=== PATIENT | female | born 2000 | race African-American/Black ===

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

== ENCOUNTER 2019-04-16 10:51 | Inpatient (IN) | payer BC ==
[2019-04-16 11:26] LABS: Bacteria/HPF 4+ HPF (None Seen); Bilirubin Negative (Negative); Blood, Urine 2+ (Negative); Clarity Turbid (Clear); Glucose, Urine (Dipstick) Normal (Negative); Leukocyte 500 Leu/uL (Negative); Nitrite 2+ (Negative); Protein, Urine (Dipstick) 10 mg/dL (Neg-Trace); Urobilinogen Normal mg/dL (Less than 2); WBC/HPF Greater than 50 HPF (0-3)
[2019-04-16] MEDS ORDERED: Sodium Chloride 0.9% 1,000 ML IV SCH (13:53)
[2019-04-16] MEDS ORDERED: Sodium Chloride 0.9% 500 ML IV SCH (16:15)
[2019-04-16] MEDS: Sodium Chloride 0.9% 1,000 ML IV SCH (16:45)
[2019-04-16] MEDS ORDERED: cefTRIAXone\\ROCEPHIN 2 GM in Sodium Chloride 0.9% 100 ML IVPB SCH (18:00)
--- NOTE | 2019-04-16 18:24 | PDOC.HHP ---
Hospitalist HPI - History of Present Illness headache, fever, chills History of Present Illness: Patient was in her usual state of health until this am when she started having the above symptoms...she went to [facility], was evaluated, felt to be septic and transfered to this facility. Uppon arrival her systolic BP was in the low 70 's She denies any significant past medical history or surgical history. Does not have any know allergy. Denies cigarette smoking, ETOH abuse or substance abuse. Family history was reviewed and is not contributory. Hospitalist ROS - Review of Systems Constitutional: reports: fever, chills Eyes: denies: pain, vision change, conjunctivae inflammation, eyelid inflammation, redness, other ENT: denies: ear pain, ear discharge, nose pain, nose discharge, nose congestion , mouth pain, mouth swelling, throat pain, throat swelling, other Respiratory: denies: cough, dry, shortness of breath, hemoptysis, SOB with excertion, pleuritic pain, sputum, wheezing, other Cardiovascular: denies: chest pain, palpitations, orthopnea, paroxysmal noc. dyspnea, edema, light headedness, other Gastrointestinal: denies: nausea, vomiting, abdominal pain, diarrhea, constipation, melena, hematochezia, other Genitourinary: denies: dysuria, frequency, incontinence, hematuria, retention, other Musculoskeletal: denies: neck pain, shoulder pain, arm pain, back pain, hand pain, leg pain, foot pain, other Skin: denies: rash, lesions, natasha, bruising, other Neurological: reports: weakness (left arm and right leg..) Hospitalist History - Past Medical History Source: patient Cardiac: denies: no pertinent history, AFIB, CAD, CHF, HTN, MT, Syncope, Hyperlipidemia, Mitral valve stenosis, Aortic stenosis, Valve insufficiency, Pulmonary hypertension, Other Pulmonary: denies: no pertinent history, angina, asthma, bronchitis, CVA/TIA/ stroke, congestive heart failure, COPD, deep vein thrombosis, emphysema, heart attack, high cholesterol, HIV/AIDS, hypertension, lung disease, pneumonia, previously intubated, pulmonary embolism, Other COORDINATOR OF ONLINE PROGRAMS: denies: no pertinent history, Carpal Tunnel Syndrome, CVA, Dementia, Migraine, Peripheral neuropathy, Seizure, TIA, Vertigo, Other Gastrointestinal: denies: no pertinent history, Constipation, Diverticulosis, GERD, GI bleed, Gastritis, Hemorrhoids, Inflam bowel disease, Irritable bowel disease, Peptic ulcer disease, Other Heme/Onc: denies: no pertinent history, Anemia NOS, B12 deficiency, Cancer, Hemochromatosis, Iron deficiency anemia, Sickle cell disease, Sickle cell trait , Other Hepatobiliary: denies: no pertinent history, Cirrhosis, Cholelithiasis, Hep A/B/ C, Other Psych: denies: no pertinent history, Anxiety, Addictions, Bipolar, Depression, Panic, Psychosis, Schizophrenia, Other Musculoskeletal: denies: no pertinent history, Chronic low back pain, Bursitis, Osteoarthritis, Other Rheumatologic: denies: no pertinent history, Fibromyalgia, Gout, Rheumatoid arthritis, Vasculitis, Other Endocrine: reports: Other (Currently menstruating..Had a miscarriage in November 2018.) - Exam General Appearance: ill appearing Eye: PERRL, anicteric sclera ENT: normocephalic atraumatic, no oropharyngeal lesions, moist mucosa Neck: supple, no JVD, no thyromegaly, no lymphadenopathy, no carotid bruit Heart: RRR Respiratory: CTAB Gastrointestinal: soft, non-tender, non-distended, normal bowel sounds, no palpable masses, no hepatomegaly, no splenomegaly, no guarding, no rigidity, tender to palpation Extremities: no cyanosis, no clubbing, no edema Skin: normal turgor Neurological: cranial nerve grossly intact Neurological - other findings: Weakness of right leg and left arm Psychiatric: A&O x 3 Hospitalist Results - Labs Lab results: Urine Ketones Negative mg/dL (Negative) 04/16/19 11:09 Urine Blood 2+ (Negative) A 04/16/19 11:09 Urine Nitrite 2+ (Negative) A 04/16/19 11:09 Ur Leukocyte Esterase 500 Bridget/uL (Negative) A 04/16/19 11:09 Urine RBC 4-6 HPF (0-3) A 04/16/19 11:09 Urine WBC Greater than 50 HPF (0-3) A 04/16/19 11:09 Ur Squamous Epith Cells 4-6 HPF (0-3) A 04/16/19 11:09 Urine Bacteria 4+ HPF (None Seen) A 04/16/19 11:09 Hospitalist H&P A/P - Problem (1) Left arm weakness Code(s): R29.898 - OT SYMPTOMS AND SIGNS INVOLVING THE MUSCULOSKELETAL SYSTEM Status: Acute (2) Right leg weakness Code(s): R29.898 - OTH SYMPTOMS AND SIGNS INVOLVING THE MUSCULOSKELETAL SYSTEM Status: Acute (3) Sepsis Code(s): A41.9 - SEPSIS, UNSPECIFIED ORGANISM Status: Acute Assessment and Plan: Check blood and urine culture. Chest x-ray. Start braod spectrum antibiotics Head CT with and without contrast. Consult ID, Neurology. Head CT with and without contrast.. NS wide open, then @ 125 cc/hour
[2019-04-16 18:30] LABS: #Lymphocytes 0.6 thou/uL (1.20-3.40); #Monocytes 0.2 thou/uL (0.11-0.59); #Neutrophils 12.7 thou/uL (1.40-6.50); %Basophils 0.3 % (0.0-1.0); %Eosinophils 0.2 % (0.0-10.0); %Lymphocytes 4.7 % (28.0-48.0); %Monocytes 1.2 % (0.0-4.0); %Neutrophils 93.7 % (31.0-61.0); Hemoglobin 10.2 g/dL (12.0-16.0); Mean Corpuscular HGB CONC 32.8 g/dL (32.0-36.0); Mean Corpuscular Hemoglobin 28.6 pg (25.0-35.0); Mean Corpuscular Volume 87.1 fL (78.0-98.0); Mean Platelet Volume 7.9 fL (7.4-10.4); Platelet Count 231 thou/uL (130-400); RBC Distribution Width 12.8 % (11.5-14.5); Red Blood Cell (RBC) Count 3.56 mill/uL (4.00-5.20); White Blood Cell (WBC) Count 13.6 thou/uL (4.8-10.8)
[2019-04-16 18:38] LABS: BHCG - Serum Negative (NEGATIVE); Pregs Control Background? CLEAR/WHITE (CLR/WHITE); Pregs Control Bar Appear? YES (CONTROL BAR)
[2019-04-16 18:47] VITALS: BMI 31.6
[2019-04-16 18:54] LABS: Anion Gap 12 mmol/L (10-20); BUN (Urea Nitrogen) 9 mg/dL (7.0-18.7); Calc. Creatinine Clearance 116 mL/min (70-130); Calcium 7.9 mg/dL (7.8-10.44); Carbon Dioxide 23 mmol/L (22-29); Chloride 110 mmol/L (98-107); Estimated GFR-MDRD 75; Glucose 105 mg/dL (70-105); Magnesium 1.5 mg/dL (1.7-2.2); Potassium 3.7 mmol/L (3.5-5.1); Sodium 141 mmol/L (136-145)
--- NOTE | 2019-04-16 20:20 | MRI ---
MRI BRAIN WITH AND WITHOUT CONTRAST: DATE: 04/16/2019 HISTORY: 19-year-old female with fever, right lower extremity weakness, and left upper extremity weakness. "Se psis." TECHNIQUE: Multiplanar, multisequence MRI of the brain obtained pre and post IV injection of gadolinium based co ntrast agent. FINDINGS: The ventricles are normal in size and configuration. There is no midline shift or any other evidence of mass effect. There is no extra-axial fluid collection. There is no intra-axial signal abnormality, abnormal enhancement, mass, recent hemorrhage, or restricted diffusion. IMPRESSION: Normal
[2019-04-16] MEDS: Vancomycin HCl 1 GM in Premix Bag 1 BAG IVPB SCH (21:08)
--- NOTE | 2019-04-16 23:51 | PDOC.EVN ---
Event Note - Event Note Event Note: OBGYN consult on record. Consult was cancelled by phone to the OBGYN hospitalist team. We are happy to assist in any way. Thanks
[2019-04-17 02:58] LABS: Lactic Acid 2.1 mmol/L (0.5-2.2)
[2019-04-17] MEDS: Sodium Chloride 0.9% 1,000 ML IV SCH ×3 (04:00→19:56)
[2019-04-17] MEDS ORDERED: Sodium Chloride 0.9% 500 ML IV SCH (04:15)
[2019-04-17] MEDS: Vancomycin HCl 1 GM in Premix Bag 1 BAG IVPB SCH ×2 (08:29→21:01)
[2019-04-17] MEDS: Acetaminophen 325 MG TAB PO PRN ×2 (08:41→18:00)
[2019-04-17] MEDS ORDERED: cefTRIAXone\\ROCEPHIN 2 GM in Sodium Chloride 0.9% 100 ML IVPB SCH (09:00)
[2019-04-17] MEDS ORDERED: Ondansetron PF 4 MG/2 ML Vial IVP PRN (11:22)
--- NOTE | 2019-04-17 11:30 | CON ---
DATE OF CONSULTATION: CHIEF COMPLAINT: Numbness. HISTORY OF PRESENT ILLNESS: The patient reports she woke up around 5:00 a.m. yesterday. She felt cold. She could not stop shaking. She came to the emergency room and she was told that she had urinary tract infection. She felt numbness in both hands and her left foot and per admitting physician's note, she also had left arm and right leg weakness. She complained of mouth tingling and dizziness. PREVIOUS MEDICAL HISTORY: No history of any health issues. No sickle cell trait or sickle cell anemia. PREVIOUS SURGICAL HISTORY: None. FAMILY HISTORY: Mother is 60, dad is 58, both are healthy. There is no family history of any strokes or sickle cell disease or thalassemia. SOCIAL HISTORY: She does not smoke or drink. She lives with her family. REVIEW OF SYSTEMS: PULMONARY: Negative for shortness of breath or cough. GI: Negative for any nausea, vomiting, or diarrhea. GENITOURINARY: Positive for urinary infection. DERMATOLOGIC: Negative for any rash or skin problems. OPHTHALMOLOGIC: Negative for any blurred vision. ENDOCRINE: Normal. ENT: Negative for any hearing problems. NEUROLOGIC: Positive for numbness. LABORATORY DATA: Her current lab workup, laboratory results; white count 13.6, hemoglobin 10.2, hematocrit 31, platelet count 231. Chemistry; sodium 141, potassium 3.7, chloride 110, bicarb 23, BUN 9, creatinine 1.12, magnesium 1.5. Her MRI of the brain was completed and did not show any acute stroke or demyelinating lesions. PHYSICAL EXAMINATION: VITAL SIGNS: Blood pressure 92/64, pulse is 86, temperature 98.4, respiratory rate 18. GENERAL APPEARANCE: Well-built, well-nourished lady, who is comfortable and standing in the room and walking around. CHEST: Clear vesicular breathing. CARDIOVASCULAR: S1 and S2 heard. No murmurs. ABDOMEN: Soft and nontender. No organomegaly noted. NEUROLOGICAL: Higher intellectual function. Normal orientation to time, place, and person. Appropriate conversation. Cranial nerves 2 through 12, normal extraocular movements. Pupils are 2 mm bilaterally. No facial asymmetry noted. Tongue midline. No atrophy noted. Normal sensation of face bilaterally. Normal hearing bilaterally to finger rub. Motor examination; bulk normal, tone normal. Strength 5/5 in upper and lower extremities bilaterally in iliopsoas, hamstrings, quadriceps, ankle dorsiflexion, plantar flexion, deltoid, biceps, triceps, wrist extension and flexion, finger extension and flexion bilaterally. Sensory examination normal to touch bilaterally in upper and lower extremities. Cerebellar; normal [id number] and [id number]. IMPRESSION: The patient is a 19-year-old lady who comes in with history of urinary infection and she had some nonspecific neurological symptoms such as numbness and weakness. Her current neurological examination is normal. There is no history of any stroke in the family. Her MRI is negative. At this time, I do not think she has any active neurological issues. Please call us if you have any further questions. Job ID: [id number]
[2019-04-17] MEDS ORDERED: Meropenem 1 GM in Sodium Chloride 0.9% 100 ML IVPB SCH (12:00)
[2019-04-17] MEDS: MEROPENEM 1 GM/50 ML 1 GM in Premix Bag 1 BAG IVPB SCH ×2 (12:59→19:56)
[2019-04-17 13:02] LABS: #Lymphocytes 1.3 thou/uL (1.20-3.40); #Monocytes 0.4 thou/uL (0.11-0.59); #Neutrophils 10.1 thou/uL (1.40-6.50); %Basophils 0.1 % (0.0-1.0); %Eosinophils 0.3 % (0.0-10.0); %Lymphocytes 10.8 % (28.0-48.0); %Neutrophils 85.8 % (31.0-61.0); Hemoglobin 9.8 g/dL (12.0-16.0); Mean Corpuscular HGB CONC 33.3 g/dL (32.0-36.0); Mean Corpuscular Hemoglobin 28.9 pg (25.0-35.0); Mean Corpuscular Volume 86.9 fL (78.0-98.0); Mean Platelet Volume 8.2 fL (7.4-10.4); Platelet Count 230 thou/uL (130-400); RBC Distribution Width 12.8 % (11.5-14.5); Red Blood Cell (RBC) Count 3.38 mill/uL (4.00-5.20); White Blood Cell (WBC) Count 11.8 thou/uL (4.8-10.8)
[2019-04-17 13:12] LABS: Anion Gap 10 mmol/L (10-20); BUN (Urea Nitrogen) 7 mg/dL (7.0-18.7); Calc. Creatinine Clearance 130 mL/min (70-130); Carbon Dioxide 23 mmol/L (22-29); Chloride 111 mmol/L (98-107); Estimated GFR-MDRD 86; Potassium 3.5 mmol/L (3.5-5.1); Sodium 140 mmol/L (136-145)
[2019-04-17 13:13] LABS: Calcium 8.3 mg/dL (7.8-10.44); Glucose 90 mg/dL (70-105)
[2019-04-17 18:30] LABS: Syphilis Antibody Nonreactive (Nonreactive); Syphilis Antibody Index 0.06 S/CO (<1.00 Non-Reactive)
[2019-04-17 18:36] LABS: HIV (1/2) Antibody/Antigen Non-Reactive (NonReactive); HIV 1/2 INDEX 0.05 S/CO (<1.00)
--- NOTE | 2019-04-17 19:08 | PDOC.HOSPP ---
- Subjective Encounter Date: 04/17/19 Encounter Time: 10:00 Subjective: Pt seen for followup re:sepsis. feels slightly better. No nausea or vomiting. No weakness. - Objective Vital Signs & Weight: Vital Signs (12 hours) Temp Pulse Resp BP Pulse Ox 04/17/19 11:37 86/60 L 04/17/19 08:45 98 04/17/19 07:48 98.4 F 86 18 92/64 98 Weight Weight 202 lb 4.8 oz I&O: 04/16/19 04/17/19 04/18/19 06:59 06:59 06:59 Intake Total 1620 Output Total 300 Balance -300 1620 Result Diagrams: 04/17/19 12:33 04/17/19 12:33 Additional Labs: Labs and MARs reviewed by dc Hospitalist ROS - Review of Systems Cardiovascular: denies: chest pain, palpitations, orthopnea, paroxysmal noc. dyspnea, edema, light headedness Gastrointestinal: denies: nausea, vomiting, abdominal pain, diarrhea, constipation, melena, hematochezia - Medication Medications: Active Medications Generic Name Dose Route Start Last Admin Trade Name Freq PRN Reason Stop Dose Admin Acetaminophen 650 mg 04/17/19 08:13 04/17/19 18:00 Tylenol PO 650 mg Q6H PRN Administration Headache/Fever or Pain Sodium Chloride 1,000 mls @ 125 mls/hr 04/16/19 16:45 04/17/19 08:27 Normal Saline 0.9% IV 1,000 mls .Q8H LOUISE Administration Vancomycin HCl 1 gm/ Device 200 mls @ 200 mls/hr 04/16/19 21:00 04/17/19 08: 29 IVPB 200 mls Q12HR LOUISE Administration Meropenem 1 gm/ Device 50 mls @ 200 mls/hr 04/17/19 12:00 04/17/19 12:59 IVPB 50 mls 0400,1200,2000 LOUISE Administration Ondansetron HCl 4 mg 04/17/19 11:22 04/17/19 11:33 Zofran IVP 4 mg Q6H PRN Administration Nausea/Vomiting - Exam General - other findings: Obese Eye: anicteric sclera ENT: moist mucosa Neck: supple, no JVD Heart: RRR, no rubs Respiratory: CTAB, no wheezes Gastrointestinal: soft, non-tender, normal bowel sounds Extremities: no clubbing Neurological: no weakness Psychiatric: normal affect, normal behavior Hosp A/P (1) Sepsis Code(s): A41.9 - SEPSIS, UNSPECIFIED ORGANISM Status: Acute (2) UTI (urinary tract infection) Status: Acute - Plan continue antibiotics, out of bed/ambulate Switched antibiotics to IV meropenem, await sensitivities for E. coli UTI. Appreciate neurology service input.
--- NOTE | 2019-04-17 21:53 | CON ---
DATE OF CONSULTATION: 04/17/2019 REASON FOR CONSULTATION: Invasive UTI. HISTORY OF PRESENT ILLNESS: A 19-year-old, who recently lost a baby. She basically had a spontaneous at home and she is otherwise pretty healthy with no history of urinary tract infections in the past and was in her usual state until the day of admission when she suddenly developed chills and fever without any urinary symptoms or pain anywhere. No headaches. No visual symptoms. No sore throat, odynophagia, or dysphagia. No cough or chest pain. No dyspnea. No abdominal pain. No vaginal or joint symptoms. No neurological symptoms. She was admitted and started on broad-spectrum antimicrobial coverage. She is feeling better now and 10-point review of system is as above. She has a history of asthma and one demise with spontaneous at the beginning of this year. ALLERGIES: NO ALLERGY HISTORY. MEDICATIONS: List includes, 1. Meropenem. 2. Zofran. 3. Vancomycin. FAMILY HISTORY: Noncontributory. SOCIAL HISTORY: She lives with mother. She has a boyfriend. No children. Does not smoke or drink. No drug use. PHYSICAL EXAMINATION: VITAL SIGNS: Here, the temperature has been normal. Other vital signs are fairly unremarkable. GENERAL: Awake, alert, oriented, pleasant, and in no distress. SKIN: Normal. Peripheral IV access. No lymphadenopathy. HEENT: Ocular movements are conjugate. Oral cavity is normal. NECK: Supple. No jugular vein distention. No thyromegaly. LUNGS: Symmetric. Clear breath sounds. HEART: S1 and S2. Regular rate. No S3 or S4. ABDOMEN: Soft, not distended or tender. No ascites. No bladder distention. EXTREMITIES: No joint inflammatory activity. She moves extremities equally. NEUROLOGIC: Cognitive function appears to be intact. LABORATORY DATA: Creatinine 1.0. White cell count 13.6 and 11.8, platelets normal, 92% neutrophils and 85% neutrophils, followup hemoglobin was 9.8, MCV 96. Urinalysis, pH is 5.5 with greater than 50 wbc's. Microbiology with E coli. There was an E coli from June 15, which is a clean-catch specimen, which was resistant to ampicillin and Bactrim and then at this time, there was an E coli as well with pending susceptibility results. Two sets of blood cultures thus far, no growth. Chest x-ray with normal findings and MRI of brain with normal findings. ASSESSMENT AND PLAN: Evidence of invasive urinary tract infection, likely pyelonephritis with no bacteremia detected just yet. Organism identified from urine cultures. Susceptibility results are pending. Main risk factor is sexual activity. No risk factors for complicated process at this time and so no need for imaging. We will go ahead and discontinue vancomycin, probably tomorrow should be able to switch her to oral agent for discharge planning depending on results of susceptibility studies. Duration of therapy is not more than 7 days usually for uncomplicated pyelonephritis. Check HIV and RPR. Job ID: [id number] [facility]
[2019-04-18] MEDS: MEROPENEM 1 GM/50 ML 1 GM in Premix Bag 1 BAG IVPB SCH (03:36)
[2019-04-18 05:35] LABS: #Eosinphils 0.1 thou/uL (0.0-0.7); #Lymphocytes 1.5 thou/uL (1.20-3.40); #Monocytes 0.4 thou/uL (0.11-0.59); #Neutrophils 6.2 thou/uL (1.40-6.50); %Basophils 0.1 % (0.0-1.0); %Eosinophils 0.8 % (0.0-10.0); %Lymphocytes 17.8 % (28.0-48.0); %Monocytes 4.9 % (0.0-4.0); %Neutrophils 76.4 % (31.0-61.0); Mean Corpuscular HGB CONC 33.2 g/dL (32.0-36.0); Mean Corpuscular Hemoglobin 28.7 pg (25.0-35.0); Mean Corpuscular Volume 86.3 fL (78.0-98.0); Mean Platelet Volume 8.2 fL (7.4-10.4); Platelet Count 223 thou/uL (130-400); RBC Distribution Width 12.7 % (11.5-14.5); Red Blood Cell (RBC) Count 3.48 mill/uL (4.00-5.20); White Blood Cell (WBC) Count 8.2 thou/uL (4.8-10.8)
[2019-04-18 05:53] LABS: Anion Gap 9 mmol/L (10-20); BUN (Urea Nitrogen) 7 mg/dL (7.0-18.7); Calc. Creatinine Clearance 138 mL/min (70-130); Carbon Dioxide 22 mmol/L (22-29); Chloride 111 mmol/L (98-107); Estimated GFR-MDRD Greater than 90; Glucose 88 mg/dL (70-105); Potassium 3.7 mmol/L (3.5-5.1); Sodium 138 mmol/L (136-145)
[2019-04-18] MEDS ORDERED: Ciprofloxacin 500 MG TAB PO SCH (08:00)
[2019-04-18 08:28] LABS: Vancomycin, Trough 10.5 ug/mL
[2019-04-18] MEDS: Vancomycin HCl 1 GM in Premix Bag 1 BAG IVPB SCH (08:40)
[2019-04-18] MEDS: Sodium Chloride 0.9% 1,000 ML IV SCH ×2 (08:40)
[2019-04-18 12:11] VITALS: BP 113/77; TEMP 98.1
--- NOTE | 2019-04-18 16:47 | DIS ---
DATE OF ADMISSION: 04/16/2019 DATE OF DISCHARGE: 04/18/2019 PRIMARY CARE PROVIDER: Unknown. DISCHARGE DIAGNOSES: 1. Severe sepsis with acute kidney injury. 2. Urinary tract infection with Escherichia coli. 3. Weakness. CONSULTATIONS DURING THIS HOSPITALIZATION: 1. Neurology, Dr. Brown. 2. Infectious Disease, Dr. Cobb. CONDITION OF PATIENT ON THE DAY OF DISCHARGE: Stable. I assessed Ms. Lopez on the day of discharge. She denies any chest pain or shortness of breath. Vital signs are stable. S1 and S2 are heard, regular. Lungs are clear to auscultation bilaterally. FOLLOWUP APPOINTMENTS: The patient is advised to follow up with primary care provider in 3 to 5 days' time and to obtain final blood culture results at that time. DISCHARGE MEDICATIONS: Ciprofloxacin 500 mg 2 times a day for 5 more days. HOSPITAL COURSE: Ms. Lopez is a pleasant 19-year-old lady, who was admitted to [facility] for severe sepsis secondary to urinary tract infection. She also complained of numbness in both hands and left foot and left arm and right leg weakness. She was seen by Neurology Service. MRI of the brain did not show any acute intracranial abnormality. She was also seen by Infectious Diseases Service. Urine culture grew Escherichia coli, sensitive to amikacin, cefoxitin, ciprofloxacin, gentamicin, levofloxacin, meropenem, nitrofurantoin, Zosyn, and tobramycin; resistant to ampicillin, cefepime, ceftazidime, ceftriaxone, and trimethoprim/sulfamethoxazole. She was initially treated with ampicillin and ceftriaxone, subsequently switched to meropenem. After availability of urine culture result, she is being started on ciprofloxacin prior to discharge. At the time of this dictation, preliminary blood cultures are negative. She has been advised to follow up with her primary care provider for final blood culture results. DISCHARGE DESTINATION: Home. TIME SPENT: Total amount of time spent coordinating this discharge: 32 minutes. Job ID: [id number]
[2019-04-18] MEDS ORDERED: Vancomycin HCl 1.5 GM in Sodium Chloride 0.9% 250 ML 300 ML IVPB SCH (21:00)
== END 2019-04-18 13:15 | disposition home or self-care (01) | DRG 872 ==
LOC: ERS 10:51 → T4-B 14:03
PROVIDERS: ADMIT Internal Medicine; ATTEND Internal Medicine
DX: A41.51 Sepsis due to Escherichia coli [E. coli] (principal); N39.0 Urinary tract infection, site not specified; N17.9 Acute kidney failure, unspecified; Z16.29 Resistance to other single specified antibiotic; R65.20 Severe sepsis without septic shock; R53.1 Weakness; B96.20 Unspecified Escherichia coli [E. coli] as the cause of diseases classified elsewhere
CPT/HCPCS: 36415; 36416; 70553; 80048; 80202; 83605; 83735; 84703; 85025; 86780; 87077; 87086; 87186; 87389; 99291; J0696; J2185; J2405; J3370; J3490

== ENCOUNTER 2021-11-12 19:20 | Emergency (ER) | payer OTHER ==
[2021-11-12 20:24] LABS: #Eosinphils 0.1 thou/uL (0.0-0.7); #Lymphocytes 2.5 thou/uL (1.20-3.40); #Monocytes 0.4 thou/uL (0.11-0.59); #Neutrophils 4.5 thou/uL (1.40-6.50); %Basophils 0.2 % (0.0-1.0); %Eosinophils 0.8 % (0.0-10.0); %Monocytes 5.3 % (0.0-10.0); %Neutrophils 60.8 % (42.0-75.0); Mean Corpuscular HGB CONC 31.4 g/dL (32.0-36.0); Mean Corpuscular Hemoglobin 25.4 pg (27.0-31.0); Mean Corpuscular Volume 80.7 fL (78.0-98.0); Mean Platelet Volume 8.6 fL (7.4-10.4); Platelet Count 298 thou/uL (130-400); RBC Distribution Width 15.6 % (11.5-14.5); Red Blood Cell (RBC) Count 4.34 mill/uL (4.20-5.40); White Blood Cell (WBC) Count 7.5 thou/uL (4.8-10.8)
[2021-11-12] MEDS ORDERED: Ketorolac Tromethamine 30 MG/ML VIAL ONE (20:28)
[2021-11-12 20:44] LABS: ALT (SGPT) 15 U/L (8-55); AST (SGOT) 19 U/L (5-34); Albumin 4.2 g/dL (3.5-5.0); Alkaline Phosphatase 113 U/L (40-110); Anion Gap 12 mmol/L (10-20); BUN (Urea Nitrogen) 12 mg/dL (7.0-18.7); Bilirubin, Total 0.3 mg/dL (0.2-1.2); Calc. Creatinine Clearance 0 mL/min (70-130); Calcium 9.2 mg/dL (7.8-10.44); Carbon Dioxide 27 mmol/L (22-29); Chloride 105 mmol/L (98-107); Globulin 3.6 g/dL (2.4-3.5); Glucose 85 mg/dL (70-105); Potassium 3.7 mmol/L (3.5-5.1); Protein, Total 7.8 g/dL (6.0-8.3); Sodium 140 mmol/L (136-145)
== END 2021-11-12 20:46 | disposition home or self-care (01) ==
LOC: ERS 19:20
DX: M94.0 Chondrocostal junction syndrome [Tietze] (principal); J45.909 Unspecified asthma, uncomplicated
CPT/HCPCS: 71045; 80053; 84484; 85025; 93005; 96372; J1885

== ENCOUNTER 2022-03-16 10:10 | Emergency (ER) | payer OTHER | END 2022-03-16 12:16 | disposition home or self-care (01) | LOC: ERS 10:10 | DX: U07.1 COVID-19 (principal); J06.9 Acute upper respiratory infection, unspecified; E11.9 Type 2 diabetes mellitus without complications | CPT/HCPCS: 87081; 87430; 87804; 99283; U0003; U0005 ==

== ENCOUNTER 2023-04-06 10:11 | Emergency (ER) | payer OTHER ==
[2023-04-06 12:35] LABS: SARS-CoV-2 NAA Rapid Test Not Detected (NotDetected)
== END 2023-04-06 13:01 | disposition home or self-care (01) ==
LOC: ERS 10:11
DX: J02.9 Acute pharyngitis, unspecified (principal); J06.9 Acute upper respiratory infection, unspecified; E11.9 Type 2 diabetes mellitus without complications; Z79.84 Long term (current) use of oral hypoglycemic drugs; Z79.51 Long term (current) use of inhaled steroids; Z20.822 Contact with and (suspected) exposure to COVID-19
CPT/HCPCS: 87081; 87430; 99283

== ENCOUNTER 2023-04-29 10:48 | Emergency (ER) | payer OTHER ==
[2023-04-29] MEDS ORDERED: Dexamethasone 4 MG TAB ONE (11:39)
[2023-04-29] MEDS ORDERED: Ketorolac Tromethamine 30 MG/ML VIAL ONE (11:39)
[2023-04-29 12:26] LABS: SARS-CoV-2 NAA Rapid Test Not Detected (NotDetected)
== END 2023-04-29 13:15 | disposition home or self-care (01) ==
LOC: ERS 10:48
DX: B34.9 Viral infection, unspecified (principal); J02.9 Acute pharyngitis, unspecified; R19.7 Diarrhea, unspecified; E11.9 Type 2 diabetes mellitus without complications; Z79.84 Long term (current) use of oral hypoglycemic drugs; Z20.822 Contact with and (suspected) exposure to COVID-19
CPT/HCPCS: 96372; 99283; J1885; J8540

== ENCOUNTER 2023-09-05 13:46 | Emergency (ER) | payer BC, OTHER ==
[2023-09-05 14:16] LABS: #Monocytes 0.3 thou/uL (0.11-0.59); #Neutrophils 3.8 thou/uL (1.40-6.50); %Basophils 0.3 % (0.0-1.0); %Eosinophils 0.7 % (0.0-10.0); %Monocytes 4.6 % (0.0-10.0); %Neutrophils 63.2 % (42.0-75.0); Hematocrit 35.1 % (36.0-47.0); Hemoglobin 11.5 g/dL (12.0-16.0); Mean Corpuscular HGB CONC 32.8 g/dL (32.0-36.0); Mean Corpuscular Hemoglobin 28.8 pg (27.0-31.0); Mean Platelet Volume 10.5 fL (7.4-10.4); Platelet Count 254 10x3/uL (130-400); RBC Distribution Width 13.2 % (11.5-14.5); Red Blood Cell (RBC) Count 3.99 mill/uL (4.20-5.40); White Blood Cell (WBC) Count 5.9 10x3/uL (4.8-10.8)
[2023-09-05] MEDS ORDERED: Acetaminophen 500 MG TAB ONE (14:30)
[2023-09-05] MEDS ORDERED: Ondansetron PF 4 MG/2 ML Vial ONE (14:31)
[2023-09-05] MEDS ORDERED: Morphine 4 MG/ML VIAL ONE (14:31)
[2023-09-05 14:32] LABS: ALT (SGPT) 10 U/L (8-55); AST (SGOT) 17 U/L (5-34); Albumin 4.2 g/dL (3.5-5.0); Alkaline Phosphatase 87 U/L (40-110); Anion Gap 12 mmol/L (10-20); BUN (Urea Nitrogen) 13 mg/dL (7.0-18.7); Bilirubin, Total 0.6 mg/dL (0.2-1.2); Calc. Creatinine Clearance 0 mL/min (70-130); Calcium 9.4 mg/dL (7.8-10.44); Carbon Dioxide 25 mmol/L (22-29); Chloride 106 mmol/L (98-107); Estimated GFR 81; Globulin 3.4 g/dL (2.4-3.5); Glucose 83 mg/dL (70-105); Lipase 23 U/L (8-78); Potassium 3.8 mmol/L (3.5-5.1); Protein, Total 7.6 g/dL (6.0-8.3); Sodium 139 mmol/L (136-145)
[2023-09-05 14:36] LABS: Troponin I 0.015 ng/mL (< 0.028)
[2023-09-05] MEDS ORDERED: Lidocaine 2% Viscous 10 mL, Alum & Magn 30 mL SSW SCH (15:15)
[2023-09-05 16:52] LABS: BHCG - Serum Negative (NEGATIVE); Pregs Control Background? CLEAR/WHITE (CLR/WHITE); Pregs Control Bar Appear? YES (CONTROL BAR)
[2023-09-05 17:42] LABS: Troponin I 0.012 ng/mL (< 0.028)
== END 2023-09-05 18:12 | disposition home or self-care (01) ==
LOC: ERS 13:46
DX: R07.89 Other chest pain (principal); E11.9 Type 2 diabetes mellitus without complications; Z79.84 Long term (current) use of oral hypoglycemic drugs
CPT/HCPCS: 36415; 71045; 80053; 83690; 84484; 84703; 85025; 85379; 93005; 96374; 96375; J2270; J2405

== ENCOUNTER 2023-11-19 10:30 | Emergency (ER) | payer BC, OTHER ==
[2023-11-19 11:40] LABS: Influenza A by NAA Not Detected (NotDetected); Influenza B by NAA Not Detected (NotDetected); SARS-CoV-2 NAA Rapid Test Not Detected (NotDetected)
== END 2023-11-19 14:13 | disposition home or self-care (01) ==
LOC: ERS 10:30
DX: J06.9 Acute upper respiratory infection, unspecified (principal); B97.89 Other viral agents as the cause of diseases classified elsewhere; E11.9 Type 2 diabetes mellitus without complications
CPT/HCPCS: 71046; 87081; 87430